=== PATIENT | female | born 1960 | race Caucasian/White ===

== ENCOUNTER 2022-03-29 07:47 | Outpatient (CLI) | payer OTHER, SELFPAY ==
--- NOTE | ~2022-03-29 | MR_ITS ---
EXAMINATION: MR shoulder RT wo con DATE: 03/29/2022 08:30 INDICATION: Right shoulder pain. TECHNIQUE: Magnetic resonance imaging (MRI) of the right shoulder was performed without intravenous c ontrast. Sequences included axial PD-weighted FS FSE, coronal oblique PD-weighted FS FSE, coronal obl ique T2-weighted FS FSE, sagittal PD-weighted FS FSE, and sagittal T1-weighted SE. COMPARISON: None. FINDINGS: Coracoacromial arch: The acromion undersurface is curved in morphology (type II). The coracoacromial ligament is normal. M inimal acromioclavicular osteoarthritis. Rotator cuff: Moderate supraspinatus tendinopathy with thickening and increased signal but without discrete tear. T he infraspinatus and teres minor tendons are normal. The subscapularis tendon is normal. No asymmetri c atrophy of the rotator cuff musculature. Biceps tendon, glenoid labrum and glenohumeral cartilage: Severe tendinopathy of the intra-articular long head biceps tendon without discrete tear. Irregular d egenerative tearing beginning at the 11:00 position of the posterosuperior labrum and extending acros s the superior, anterior into the small inferior glenoid labrum. The posterior labrum but with a sepa rate small more well-defined partial thickness fluid signal intensity tear at the chondral labral marizol ction at the 8:00-9:00 position. Mild partial-thickness cartilage loss of the humeral head relatively sparing the central superomedial portion of the articular surface. Partial-thickness cartilage loss at the glenoid with prominent centrally where it involves greater than 50% the cartilage thickness bu t without degenerative subchondral changes. There are tiny marginal osteophytes along portions of the posterior, anterior and inferior glenoid and along the inferomedial humeral head. Fluid: Small glenohumeral joint effusion collecting at the deep subscapular and axillary recesses. Proportio nal extension of a small amount fluid along the biceps tendon sheath this could also be due to tenosy novitis. No loose osteochondral bodies. Small amount of fluid in the subacromial/subdeltoid bursa con sistent with mild bursitis. Bones/other: Normal marrow signal with no edema, fracture or abnormal marrow replacing process. There is thickenin g of the axillary recess and thickened soft tissue replacing the normal fat signal at the rotator cuf f interval, both findings which can be seen in the setting of adhesive capsulitis which is a clinical diagnosis. IMPRESSION: 1. Mild glenohumeral osteoarthritis with extensive labral tearing. 2. Moderate supraspinatus tendinopathy without discrete tear. 3. Constellation of findings which could be seen in the setting of adhesive capsulitis which is a cli nical diagnosis. 4. Mild subacromial/subdeltoid bursitis. Reviewed, dictated and finalized at location B. IMPRESSION: 1. Mild glenohumeral osteoarthritis with extensive labral tearing. 2. Moderate supraspinatus tendinopathy without discrete tear. 3. Constellation of findings which could be seen in the setting of adhesive cap sulitis which is a clinical diagnosis. 4. Mild subacromial/subdeltoid bursitis.
== END 2022-03-29 07:48 | disposition home or self-care (01) ==
PROVIDERS: PCP Physician Assistant; Visit Provider Orthopaedic Surgery
DX: M25.511 Pain in right shoulder (principal); G89.29 Other chronic pain; S43.431A Superior glenoid labrum lesion of right shoulder, initial encounter; M75.51 Bursitis of right shoulder
CPT/HCPCS: 73221

== ENCOUNTER 2022-09-28 12:33 | Outpatient (CLI) | payer OTHER, SELFPAY ==
--- NOTE | ~2022-09-28 | MR_ITS ---
EXAMINATION: MR chest wo/w con DATE: 09/28/2022 13:35 INDICATION: Brachial neuritis. TECHNIQUE: Magnetic resonance imaging (MRI) of the bilateral brachial plexus was performed without an d with 19 mL MultiHance intravenous contrast. COMPARISON: Right shoulder MRI 03/29/2022 FINDINGS: There is severe cervical spondylosis. The brachioplexus is normal bilaterally. No abnormal mass in the area of the brachial plexus. There is mild right glenohumeral joint osteoarthritis and se naeem left glenohumeral joint osteoarthritis. There is small right and moderate-sized left glenohumera l joint effusions. There is no fatty atrophy involving the rotator cuff muscle bellies. There is concepción a involving left subscapularis muscle at its scapular attachment, consistent with strain. The rotator cuff tendons are not well evaluated. IMPRESSION: 1. Normal brachial plexus. 2. Mild right and severe left glenohumeral joint osteoarthritis. 3. Small right and moderate-sized left glenohumeral joint effusions. 4. Grade 1 strain of left subscapularis muscle. 5. Severe cervical spondylosis. Reviewed, dictated and finalized at location A. [employer]
== END 2022-09-28 12:34 | disposition home or self-care (01) ==
PROVIDERS: PCP Physician Assistant
DX: M47.22 Other spondylosis with radiculopathy, cervical region (principal); M19.011 Primary osteoarthritis, right shoulder; M19.012 Primary osteoarthritis, left shoulder; M25.411 Effusion, right shoulder; M25.412 Effusion, left shoulder
CPT/HCPCS: 71552; A9577